=== PATIENT | male | born 2000 | race Caucasian/White ===

== ENCOUNTER 2021-11-09 15:53 | Inpatient (IN) ==
--- NOTE | 2021-11-09 16:34 | ED Triage Note ---
Date of Service November 09, 2021 History of Present Illness This patient was briefly evaluated while in triage. An abbreviated physical exam was performed. This patient is a 21-year-old male with past medical history of anxiety who presents to the ED for evaluation of vomiting. The patient states he has been constipated x 4 days and has had persistent lower abdominal pain since then. He has been attempting to take stool softeners without relief. Today, the patient states that he felt dehydrated and weak. He did attempt to drink water but stated that he felt intermittently lightheaded/dizzy throughout the day and felt like he was going to pass out several times. During an episode this afternoon, he states that he vomited 4 times. He did note red and dark/black colors in his vomit. No recent fevers/chills, chest pain, respiratory difficulties or other acute symptoms. PHYSICAL EXAM: VITALS: Vitals are noted on the nurse's note and reviewed by myself. Vital signs stable. General: Resting in chair, no acute distress HEENT: Normocephalic, PERRL, EOMI, mucous membranes moist, oropharynx clear Resp: Good inspiratory effort on room air, lung sounds clear bilaterally CV: Regular rate and rhythm, normal S1-S2 Abd: Mildly distended but soft, tender to palpation over the lower abdominal quadrants/suprapubic region. No rebound, guarding or rigidity MSK: Moving all extremities without apparent pain or difficulty Integumentary: Warm, dry, no appreciable rash Neuro: Awake, alert and oriented x 3, interacting and answering questions appropriately Physical Exam Initial orders for labs and / or imaging were placed and patient was placed in the waiting area until a bed is available. Please see further documentation for the full ED course.
[2021-11-09] MEDS ORDERED: SODIUM CHLORIDE 0.9% 1000ML 1,000 ML IV SCH (16:35)
[2021-11-09 17:08] LABS: Basophils # (auto) 0.08 K/uL (0-0.2); Basophils % (auto) 0.5 %; Eosinophils # (auto) 0.18 K/uL (0-0.50); Eosinophils % (auto) 1.1 %; Hematocrit (blood only) 40.7 % (40.1-51.0); Hemoglobin 14.4 g/dl (14.0-18.0); Immature Granulocytes # (auto) 0.07 K/uL (0.00-0.02); Immature Granulocytes % (auto) 0.4 %; Lymphocytes # (auto) 1.41 K/uL (1.2-3.4); Lymphocytes % (auto) 8.3 %; Mean Corpuscular Hemoglobin 29.2 pg (25.0-34.0); Mean Corpuscular Hgb Conc 35.4 g/dL (32.0-36.0); Mean Corpuscular Volume 82.6 fL (80.0-100.0); Mean Platelet Volume 10.4 fL (9.4-12.4); Monocytes # (auto) 0.86 K/uL (0.24-0.82); Monocytes % (auto) 5.1 %; Neutrophils # (auto) 14.39 K/uL (1.4-6.5); Neutrophils % (auto) 84.6 %; Platelet Count 339 K/uL (130-400); RDW Coefficient of Variation 12.9 % (11.5-14.5); RDW Standard Deviation 38.2 fL (36.4-46.3); Red Blood Count 4.93 M/uL (4.63-6.08); White Blood Count 16.99 K/ul (4.8-10.8)
[2021-11-09 17:35] LABS: INR 1.1 (0.9-1.1); Partial Thromboplastin Ratio 0.9; Partial Thromboplastin Time 23.9 Seconds (21.0-31.0)
[2021-11-09 17:42] LABS: BUN Creatinine Ratio 37.7 (10-20)
[2021-11-09 17:43] LABS: Albumin Level 4.5 gm/dl (3.4-5.0); Bilirubin,Total 0.8 mg/dl (0.2-1.0); Calcium 9.1 mg/dl (8.5-10.1); Creatinine Clr Calc Pharmacy 123.9 ml/min; Est GFR (African American) 115.7 ml/min; Est GFR (Non-African American) 99.8 ml/min; Globulin 2.2 gm/dl (2.5-4.0); Potassium 4.3 mmol/L (3.5-5.1); Total Protein 6.7 gm/dl (6.0-8.3); Troponin I High Sensitivity 5.5 pg/ml (0-20)
[2021-11-09] MEDS ORDERED: OPTIRAY 300 500mL IV ONE (18:10)
--- NOTE | 2021-11-09 18:29 | CT Scan Report ---
CT SCAN OF THE ABDOMEN AND PELVIS WITH IV CONTRAST CLINICAL HISTORY: Lower abdominal pain. Vomiting. COMPARISON STUDY: No priors. TECHNIQUE: Following the IV administration of 95 cc of Optiray 300, CT scan of the abdomen and pelvi s is performed from the lung bases to the proximal femora. Images are reviewed in the axial, sagittal , and coronal planes. IV contrast was administered without complication. A dose lowering technique wa s utilized adhering to the principles of ALARA. The examination is modestly degraded by motion artifa ct. CT DOSE: 418.47 mGy.cm FINDINGS: Lung bases: The heart is normal in size and without pericardial effusion. The lung bases are clear. Liver: The contrast-enhanced liver is normal in size, contour, and attenuation. There is no intrahepa tic biliary ductal dilatation. The hepatic veins and portal veins are patent. Gallbladder: Unremarkable. Spleen: Normal in size and attenuation. Pancreas: Unremarkable. Adrenal glands: Unremarkable. Kidneys: The contrast enhanced kidneys are normal in size and without hydronephrosis. The kidneys enh ance symmetrically. Abdominal vasculature: The abdominal aorta is normal in course and caliber. Bowel: There is no bowel obstruction. There is mild nonspecific wall thickening and mucosal hyperemia involving the proximal duodenum with mild surrounding inflammation. This is best seen on axial image #123. Liquid stool is noted in the colon. There is no colonic wall thickening or surrounding inflamm ation. The appendix is well-visualized and normal. Peritoneum: There is no intraperitoneal free air or abdominal ascites. There is a small fat-containin g umbilical hernia. Lymphadenopathy: Prominent upper abdominal lymph nodes are likely reactive. Pelvic viscera: The bladder is decompressed and not well evaluated. The prostate and seminal vesicles are normal as imaged. Skeletal structures: No lytic or blastic lesions are seen. IMPRESSION: 1. There is inflammatory change involving the proximal duodenum as detailed above. Differential consi derations include duodenitis or possibly ulcer disease. Clinical correlation will be essential. This can be further assessed with endoscopy if clinically warranted. 2. No intraperitoneal free air is identified. 3. Liquid stool seen throughout the colon. Correlate clinically for evidence of a diarrheal illness. 4. No bowel obstruction. 5. Additional findings as above. ACT 112: Negative or not required by law. Electronically signed by: Ho Kaye M.D. 11/09/2021 6:27 PM
--- NOTE | 2021-11-09 18:33 | Emergency Department Note ---
Impression & Plan Upper GI bleed, Peptic ulcer disease, Tachycardia, Nausea & vomiting ED Provider Note Provider: Billy Samuel MD DATE OF SERVICE: 11/09/2021 CHIEF COMPLAINT: Abdominal pain, lightheaded, dehydrated HISTORY OF PRESENT ILLNESS: Patient is a 21-year-old gentleman presenting today stating he is having some generalized fatigue and lower abdominal pain feeling a bit lightheaded and dehydrated. States has had some nausea and vomiting as well. No trauma reported. Denies COVID or sick exposure. States has been constipated for couple days and taking some stool softeners. States this larry cantrell woke up and felt little bit lightheadedness and her stomach was a little bit unsettled. Went to class and felt lightheaded sitting down and was taking the bus back to his apartment when he outside in the heat felt lightheaded and sat down. He then he states he vomited 4 times with some black quality and some blood in it. Patient denies any bloody diarrhea or stools. Came here for further evaluation. Denies syncope. Denies history of abdominal surgery or significant alcohol or NSAID usage. Patient states he has had maybe a little bit of heartburn here there. Patient states since being here he did urinate and have a small bowel movement with no blood in it. REVIEW OF SYSTEMS: A total of 10 review of systems was obtained and negative except as stated above in the HPI. PAST MEDICAL HISTORY: As noted above MEDICATIONS: Anxiety medications reported by the patient, no NSAIDs or antic oagulants reported. SOCIAL HISTORY: [employer] student originally from [facility], denies rec ent alcohol use PHYSICAL EXAM: GENERAL: alert and oriented in no acute distress on stretcher Head: normocephalic and atraumatic EYES: No injection, discharge or icterus. NECK: Trachea midline. ENT: Mucous membranes pink and moist. LUNGS: Airway patent. No retractions. Breath sounds clear with good air entry bilaterally. HEART: Regular tachycardic rate and rhythm. No chest wall tenderness ABDOMEN: Soft without guarding with some slight tenderness just below the umbilicus. No peritonitis. SKIN: Acyanotic, warm, dry, without rashes EXTREMITIES: Without swelling, tenderness or deformity NEUROLOGICAL: No focal deficits. No aphasia. No facial droop or slurred speech. Ambulatory. EK bpm sinus tachycardia. No PVC or PAC. No acute ST segment elevation or depression with a QTC of 425. CONTINUOUS CARDIAC MONITORING: was ordered and showed a heart rate of 100s-120s bpm in sinus tachycardia Patient's laboratory studies and imaging reviewed. Differential includes Appendicitis, testicular torsion, infections, diverticulitis, UTI, obstruction, mesenteric ischemia, aortic pathology, inflammatory bowel disease, renal colic, PUD, pancreatitis, biliary pathology, hernia, volvulus, constipation, as well as other pathologies. IMPRESSION/MEDICAL DECISION MAKING: Blood work obtained with leukocytosis of almost 17 today. BUN mildly elevated but creatinine within normal limits. Given some IV fluids here. No evidence of acute hepatitis or pancreatitis based on labs. Tachycardia improved with some hydration here. No troponin elevation I doubt this represents SVT or cardiac arrhythmia. CT abdomen pelvis obtained and radiology report reviewed. There is a question of possibly some duodenitis versus peptic ulcer disease. No perforation noted by the radiologist. Patient's abdomen is fairly benign. Given some Pepcid and Protonix here as well as IV fluid. Doubt this is infectious based. Again abdominal exam and imaging not consistent with a perforation. Denies recent NSAID or alcohol usage. Discussed with GI given the CT findings and the amount of blood noted on the picture the patient had a cell phone of his vomiting earlier. Will bring in plan for endoscopy in the morning. PPI drip ordered. Patient updated. Stable at this time. DIAGNOSIS: Hematemesis, peptic ulcer disease, tachycardia, lightheaded, vomiting DISPOSITION: Hospitalist will evaluate Patient was agreeable with this plan. Past Med/Surg History Medical History No significant past medical history Surgical History No significant past surgical history Social History Smoking Status: Never smoker Second Hand Exposure: No; Do You Dip or Chew Tobacco: No; Tobacco Cessation Education Requested by Patient: No Hx Alcohol Use: Yes Hx Substance Use: No Preferred Language: Ukrainian Communication Ability: Effective Wire Fence Builder Required: No Beliefs That Will Affect Care: None Current Living Situation: Other Current Living Situation Comment: roommates Other Information That Helps Us Care for You: No Feels Safe at Home: Yes Safety Concerns: Feels Safe At This Time Assistive Devices: Glasses Allergies Allergies Allergy/AdvReac Type Severity Reaction Status Date / Time azithromycin [From Zithromax] AdvReac Verified 11/09/21 18:40 Home Meds Home Medications Medication Instructions Recorded Confirmed alprazolam 0.5 mg tablet 0.5 mg PO BID PRN Anxiety 11/09/21 11/09/21 Results & Data (ED) Vital Signs Vital Signs - 24 hr 11/09/21 16:27 11/09/21 18:20 11/09/21 22:40 Temperature 36.7 C 37.5 C Temperature Source Temporal Artery Scan Oral Pulse Rate 80 Pulse Rate [Right Finger] 109 H 104 H Pulse Rhythm [Right Finger] Regular Pulse Strength [Right Finger] Normal Respiratory Rate 18 18 18 Respiratory Effort / Characteristics Non-Labored Spontaneous Non-Labored Respiratory Depth Normal Normal Respiratory Pattern Regular Blood Pressure 131/69 Blood Pressure [Right Arm] 123/77 113/71 Blood Pressure Mean 89 Blood Pressure Mean [Right Arm] 92 85 Blood Pressure Position [Right Arm] Lying Lying Pulse Oximetry 96 98 100 Oxygen Delivery Method Room Air Room Air Room Air Sepsis Recent Fever Within 48 Hours No Sepsis New/Unexplained Change in Mental Status No Sepsis Action Taken by Nursing No Action Required 11/09/21 22:40 Temperature Temperature Source Pulse Rate Pulse Rate [Right Finger] Pulse Rhythm [Right Finger] Pulse Strength [Right Finger] Respiratory Rate Respiratory Effort / Characteristics Non-Labored Respiratory Depth Normal Respiratory Pattern Regular Blood Pressure Blood Pressure [Right Arm] Blood Pressure Mean Blood Pressure Mean [Right Arm] Blood Pressure Position [Right Arm] Pulse Oximetry Oxygen Delivery Method Room Air Sepsis Recent Fever Within 48 Hours Sepsis New/Unexplained Change in Mental Status Sepsis Action Taken by Nursing Laboratory Data Result diagrams: 11/09/21 23:13 11/09/21 16:50 Lab Results 11/09/21 11/09/21 11/09/21 Range/Units 16:50 16:50 16:50 WBC 16.99 H (4.8-10.8) K/ul RBC 4.93 (4.63-6.08) M/uL Hgb 14.4 (14.0-18.0) g/dl Hct 40.7 (40.1-51.0) % MCV 82.6 (80.0-100.0) fL MCH 29.2 (25.0-34.0) pg MCHC 35.4 (32.0-36.0) g/dL RDW Std Deviation 38.2 (36.4-46.3) fL RDW Coeff of Mary 12.9 (11.5-14.5) % Plt Count 339 (130-400) K/uL MPV 10.4 (9.4-12.4) fL Immature Gran % (Auto) 0.4 % Neut % (Auto) 84.6 % Lymph % (Auto) 8.3 % Rosebud % (Auto) 5.1 % Eos % (Auto) 1.1 % Baso % (Auto) 0.5 % Neut # (Auto) 14.39 H (1.4-6.5) K/uL Lymph # (Auto) 1.41 (1.2-3.4) K/uL Rosebud # (Auto) 0.86 H (0.24-0.82) K/uL Eos # (Auto) 0.18 (0-0.50) K/uL Baso # (Auto) 0.08 (0-0.2) K/uL Immature Gran # (Auto) 0.07 H (0.00-0.02) K/uL PT 12.0 (9.0-12.0) Seconds INR 1.1 (0.9-1.1) APTT 23.9 (21.0-31.0) Seconds PTT Ratio 0.9 Sodium 137 (136-145) mmol/L Potassium 4.3 (3.5-5.1) mmol/L Chloride 103 (98-107) mmol/L Carbon Dioxide 26 (21-32) mmol/L Anion Gap 8 (3-11) BUN 40 H (6-23) mg/dl Creatinine 1.06 (0.6-1.4) mg/dl Est Cr Clr Drug Dosing 123.9 ml/min Est GFR ( Amer) 115.7 ml/min Est GFR (Non-Af Amer) 99.8 ml/min BUN/Creatinine Ratio 37.7 H (10-20) Glucose 105 H (70-99(Fasting)) mg/dl Lactate (0.4-2.0) mmol/L Calcium 9.1 (8.5-10.1) mg/dl Total Bilirubin 0.8 (0.2-1.0) mg/dl AST 8 L (13-39) U/L ALT 10 (7-52) U/L Alkaline Phosphatase 66 (34-104) U/L Troponin I High Sens 5.5 (0-20) pg/ml Total Protein 6.7 (6.0-8.3) gm/dl Albumin 4.5 (3.4-5.0) gm/dl Globulin 2.2 L (2.5-4.0) gm/dl Albumin/Globulin Ratio 2.0 (0.9-2) Lipase 8 L (11-82) U/L SARS-CoV-2, RNA, NAAT (NEGATIVE) Blood Type Antibody Screen 11/09/21 11/09/21 11/09/21 Range/Units 18:22 19:45 19:45 WBC (4.8-10.8) K/ul RBC (4.63-6.08) M/uL Hgb (14.0-18.0) g/dl Hct (40.1-51.0) % MCV (80.0-100.0) fL MCH (25.0-34.0) pg MCHC (32.0-36.0) g/dL RDW Std Deviation (36.4-46.3) fL RDW Coeff of Mary (11.5-14.5) % Plt Count (130-400) K/uL MPV (9.4-12.4) fL Immature Gran % (Auto) % Neut % (Auto) % Lymph % (Auto) % Rosebud % (Auto) % Eos % (Auto) % Baso % (Auto) % Neut # (Auto) (1.4-6.5) K/uL Lymph # (Auto) (1.2-3.4) K/uL Rosebud # (Auto) (0.24-0.82) K/uL Eos # (Auto) (0-0.50) K/uL Baso # (Auto) (0-0.2) K/uL Immature Gran # (Auto) (0.00-0.02) K/uL PT (9.0-12.0) Seconds INR (0.9-1.1) APTT (21.0-31.0) Seconds PTT Ratio Sodium (136-145) mmol/L Potassium (3.5-5.1) mmol/L Chloride (98-107) mmol/L Carbon Dioxide (21-32) mmol/L Anion Gap (3-11) BUN (6-23) mg/dl Creatinine (0.6-1.4) mg/dl Est Cr Clr Drug Dosing ml/min Est GFR ( Amer) ml/min Est GFR (Non-Af Amer) ml/min BUN/Creatinine Ratio (10-20) Glucose (70-99(Fasting)) mg/dl Lactate 0.7 (0.4-2.0) mmol/L Calcium (8.5-10.1) mg/dl Total Bilirubin (0.2-1.0) mg/dl AST (13-39) U/L ALT (7-52) U/L Alkaline Phosphatase (34-104) U/L Troponin I High Sens (0-20) pg/ml Total Protein (6.0-8.3) gm/dl Albumin (3.4-5.0) gm/dl Globulin (2.5-4.0) gm/dl Albumin/Globulin Ratio (0.9-2) Lipase (11-82) U/L SARS-CoV-2, RNA, NAAT NEGATIVE (NEGATIVE) Blood Type O Positive Antibody Screen NEGATIVE Administered Medications Pantoprazole Sodium 40 mg/ (Dextrose) 100 mls @ 20 mls/hr IV Q5H LANG Stop: 12/09/21 19:14 Last Admin: 11/09/21 20:10 Dose: 8 mg/hr, 20 mls/hr Documented By: VAP Discontinued Medications Sodium Chloride (Nss 1000ml) 1,000 mls @ 999 mls/hr IV .Q1H1M LANG Stop: 11/09/21 17:35 Last Infusion: 11/09/21 18:19 Dose: 0 mls/hr Documented By: Admin: 11/09/21 16:55 Dose: 999 mls/hr Documented By: DONALD Famotidine (Pepcid 20mg Iv Push) 20 mg in 5 mls @ 2.5 mls/min IV NOW STA Stop: 11/09/21 18:41 Last Admin: 11/09/21 18:44 Dose: 2.5 mls/min Documented By: JOSEY Pantoprazole Sodium 80 mg/ (Dextrose) 100 mls @ 400 mls/hr IV ONE STA Stop: 11/09/21 18:54 Last Admin: 11/09/21 19:06 Dose: 400 mls/hr Documented By: JOSEY Sodium Chloride (Nss 1000ml) 1,000 mls @ 999 mls/hr IV .Q1H1M ONE Stop: 11/09/21 19:40 Last Admin: 11/09/21 18:44 Dose: 999 mls/hr Documented By: JOSEY Ioversol (Optiray 300 500ml) 95 ml IV ONCE ONE Stop: 11/09/21 18:11 Last Admin: 11/09/21 18:10 Dose: 95 ml Documented By: EDK Imaging Data Radiologist's Impression: Abdomen/Pelvis CT 11/09/21 16:34 CT SCAN OF THE ABDOMEN AND PELVIS WITH IV CONTRAST CLINICAL HISTORY: Lower abdominal pain. Vomiting. COMPARISON STUDY: No priors. TECHNIQUE: Following the IV administration of 95 cc of Optiray 300, CT scan of the abdomen and pelvis is performed from the lung bases to the proximal femora. Images are reviewed in the axial, sagittal, and coronal planes. IV contrast was administered without complication. A dose lowering technique was utilized adhering to the principles of ALARA. The examination is modestly degraded by motion artifact. CT DOSE: 418.47 mGy.cm FINDINGS: Lung bases: The heart is normal in size and without pericardial effusion. The lung bases are clear. Liver: The contrast-enhanced liver is normal in size, contour, and attenuation. There is no intrahepatic biliary ductal dilatation. The hepatic veins and portal veins are patent. Gallbladder: Unremarkable. Spleen: Normal in size and attenuation. Pancreas: Unremarkable. Adrenal glands: Unremarkable. Kidneys: The contrast enhanced kidneys are normal in size and without hydronephrosis. The kidneys enhance symmetrically. Abdominal vasculature: The abdominal aorta is normal in course and caliber. Bowel: There is no bowel obstruction. There is mild nonspecific wall thickening and mucosal hyperemia involving the proximal duodenum with mild surrounding inflammation. This is best seen on axial image #123. Liquid stool is noted in the colon. There is no colonic wall thickening or surrounding inflammation. The appendix is well-visualized and normal. Peritoneum: There is no intraperitoneal free air or abdominal ascites. There is a small fat-containing umbilical hernia. Lymphadenopathy: Prominent upper abdominal lymph nodes are likely reactive. Pelvic viscera: The bladder is decompressed and not well evaluated. The prostate and seminal vesicles are normal as imaged. Skeletal structures: No lytic or blastic lesions are seen. IMPRESSION: 1. There is inflammatory change involving the proximal duodenum as detailed above. Differential considerations include duodenitis or possibly ulcer disease. Clinical correlation will be essential. This can be further assessed with endoscopy if clinically warranted. 2. No intraperitoneal free air is identified. 3. Liquid stool seen throughout the colon. Correlate clinically for evidence of a diarrheal illness. 4. No bowel obstruction. 5. Additional findings as above. ACT 112: Negative or not required by law. Electronically signed by: Ho Kaye M.D. 11/09/2021 6:27 PM Discharge Plan Visit Data Chief Complaint: Vomiting Stated Complaint: DEHYDRATED, FEELING OF PASSING OUT, VOMITING ED Provider: Billy Samuel Discharge Problem: Upper GI bleed, Peptic ulcer disease, Tachycardia, Nausea & vomiting Patient Disposition: Admitted As Inpatient Discharge Instructions Interventions: ED Discharge Assessment Last Done: 11/09/21 22:26
[2021-11-09] MEDS ORDERED: SODIUM CHLORIDE 0.9% 1000ML 1,000 ML IV ONE (18:40)
[2021-11-09] MEDS ORDERED: PANTOprazole 80 MG in DEXTROSE 5% 100 ML IV STA (18:40)
[2021-11-09] MEDS ORDERED: FAMOTIDINE 20MG IV PUSH 20 MG/5 ML SYR IV STA (18:40)
--- NOTE | 2021-11-09 19:22 | History & Physical Report ---
Date of Service November 09, 2021 Assessment & Plan (1) Upper GI bleed: Plan: -Admit to PCU/tele -Patient is currently afebrile, hemodynamically stable, and stable on RA, but he has been tachycardic since arriving to the ED -Started on Protonix in the ED, will continue with IV Protonix for now -Keep NPO -GI consult placed, they will likely perform an EGD in the am -Ordering type and screen now and obtained blood consent in case he needs a transfusion -Monitor H&H q6h overnight -Zofran, prn for nausea/vomiting -Will continue on lactated ringer's overnight while NPO Plan The patient was discussed with Dr. Guerrero at the time of the admission History of Present Illness Chief Complaint: Abdominal pain and vomiting Primary Care Provider: NO PCP 21 year old male with no significant PMH who presented to the [facility] with a chief complaint of abdominal pain and vomiting with hematemesis. In the ED the patient was found to have a leukocytosis with left shift of 14.39, Hgb of 14.4, BUN of 40, CT of the abdomen and pelvis with IV contrast revealed " inflammatory change involving the proximal duodenum as detailed above. Differential considerations include duodenitis or possibly ulcer disease". The patient was started on Protonix, given 1L NSS and famotidine. Gastroenterology was contacted and recommended admission, they will perform an EGD tomorrow. At the time of the exam the patient was resting comfortably in bed in no acute distress. He states that he was in his normal state of health until he woke up this am and felt dehydrated and tired. He tried to drink some water and then went to class. While in class he states that he was diaphoretic, nauseous, and lightheaded. He walked back to the bus stop and was standing and waiting for the bus in the sun. He states that he felt more lightheaded/dizzy and felt as though he was going to pass out so he went and sat in the shade. He then felt nauseous again and had 4 episodes of vomiting. He showed me a picture of the vomit and it consisted of blood and digested blood. He denies frequent NSAID use, history of GI ulcers, and significant PMH. He states that he has been constipated the past few days and had taken a stool softener. He is having some mild lower abdominal pain which he describes as dull and non-radiating. Since arriving to the hospital he has not vomited but has had multiple small, black bowel movements. Allergies Allergy/AdvReac Type Severity Reaction Status Date / Time azithromycin [From Zithromax] AdvReac Verified 11/09/21 18:40 Home Medications Medication Instructions Recorded Confirmed Type alprazolam 0.5 mg tablet 0.5 mg PO BID PRN Anxiety 11/09/21 11/09/21 History Past Med/Surg History Medical History No significant past medical history Surgical History No significant past surgical history Social History Smoking Status: Never smoker Preferred Language: Lithuanian Feels Safe at Home: Yes Review of Systems Review of Systems: Denies current fever, chills, headache, changes in vision, hearing, taste, and smell, chest pain, SOB, cough, nausea, vomiting, diarrhea, dysuria, hematuria, and recent falls. Physical Exam Physical Exam: Physical Exam: General: In no acute distress, stated age, well-nourished, good hygiene HEENT: Normocephalic, atraumatic, no scleral icterus, pupils around round, symmetrical, and reactive to light, moist mucus membranes, trachea midline, no thyromegaly Chest/Pulm: No respiratory distress, symmetrical chest expansion, clear breath sounds throughout Cardiac: Tachycardic rate, regular rhythm, no murmurs noted Abdomen: Negative for ascites and bruising, normoactive bowel sounds, soft, mildly tender to palpation in the lower abdomen Musculoskeletal: Symmetrical and without signs of acute trauma, upper and lower extremities with full ROM, no atrophy, spasticity, or flaccidity Neuro: Alert and oriented to person, place, month, year, and president, no focal defects, CN II-XII tested and intact, finger to nose test negative, no tremors noted Psych: No acute distress, calm and cooperative during the exam Results & Data Results & Data ([facility]) Vital Signs (Past 12 Hours) Vital Signs Temp Pulse Pulse Resp BP BP Pulse Ox 11/09/21 18:20 109 H 18 123/77 98 11/09/21 16:27 36.7 C 80 18 131/69 96 O2 Del Method 11/09/21 18:20 Room Air 11/09/21 16:27 Room Air Laboratory Results Abnormal lab results 11/09/21 11/09/21 Range/Units 16:50 16:50 WBC 16.99 H (4.8-10.8) K/ul Neut # (Auto) 14.39 H (1.4-6.5) K/uL [place] # (Auto) 0.86 H (0.24-0.82) K/uL Immature Gran # (Auto) 0.07 H (0.00-0.02) K/uL BUN 40 H (6-23) mg/dl BUN/Creatinine Ratio 37.7 H (10-20) Glucose 105 H (70-99(Fasting)) mg/dl AST 8 L (13-39) U/L Globulin 2.2 L (2.5-4.0) gm/dl Lipase 8 L (11-82) U/L Diagnostic Findings Abdomen/Pelvis CT 11/09/21 16:34 CT SCAN OF THE ABDOMEN AND PELVIS WITH IV CONTRAST CLINICAL HISTORY: Lower abdominal pain. Vomiting. COMPARISON STUDY: No priors. TECHNIQUE: Following the IV administration of 95 cc of Optiray 300, CT scan of the abdomen and pelvis is performed from the lung bases to the proximal femora. Images are reviewed in the axial, sagittal, and coronal planes. IV contrast was administered without complication. A dose lowering technique was utilized adhering to the principles of ALARA. The examination is modestly degraded by motion artifact. CT DOSE: 418.47 mGy.cm FINDINGS: Lung bases: The heart is normal in size and without pericardial effusion. The lung bases are clear. Liver: The contrast-enhanced liver is normal in size, contour, and attenuation. There is no intrahepatic biliary ductal dilatation. The hepatic veins and portal veins are patent. Gallbladder: Unremarkable. Spleen: Normal in size and attenuation. Pancreas: Unremarkable. Adrenal glands: Unremarkable. Kidneys: The contrast enhanced kidneys are normal in size and without hydronephrosis. The kidneys enhance symmetrically. Abdominal vasculature: The abdominal aorta is normal in course and caliber. Bowel: There is no bowel obstruction. There is mild nonspecific wall thickening and mucosal hyperemia involving the proximal duodenum with mild surrounding inflammation. This is best seen on axial image #123. Liquid stool is noted in the colon. There is no colonic wall thickening or surrounding inflammation. The appendix is well-visualized and normal. Peritoneum: There is no intraperitoneal free air or abdominal ascites. There is a small fat-containing umbilical hernia. Lymphadenopathy: Prominent upper abdominal lymph nodes are likely reactive. Pelvic viscera: The bladder is decompressed and not well evaluated. The prostate and seminal vesicles are normal as imaged. Skeletal structures: No lytic or blastic lesions are seen. IMPRESSION: 1. There is inflammatory change involving the proximal duodenum as detailed above. Differential considerations include duodenitis or possibly ulcer disease. Clinical correlation will be essential. This can be further assessed with endoscopy if clinically warranted. 2. No intraperitoneal free air is identified. 3. Liquid stool seen throughout the colon. Correlate clinically for evidence of a diarrheal illness. 4. No bowel obstruction. 5. Additional findings as above. ACT 112: Negative or not required by law. Electronically signed by: Ho Kaye M.D. 11/09/2021 6:27 PM Code Status & VTE Plan Code Status Full code VTE Prophylaxis Plan VTE Prophylaxis will be ordered: Yes Supervising Physician Co-Signing Physician Notes Patient seen and examined, chart reviewed, case discussed with VITOR Hall and I agree with the assessment and plan as above. In brief, patient is a 21yo male with no significant past medical or surgical history presenting with nausea/vomiting with hematemesis as well as melenic stools. Patient does use NSAIDS infrequently for headache. Drinks occasionally but no recent heavy drinking. Has occasional GERD. No prior history of GIB. On exam he is resting comfortably, mildly anxious in appearance, NAD Skin - warm, dry, intact, no diaphoresis HEENT - MMM, Neck supple Heart - +S1/S2, regular, no m/r/g Lungs - CTA Abd - +BS, soft, NT, mild lower abdominal discomfort with deep palpation, no rebound/guarding/peritonitis Ext - warm, well perfused, no clubbing/cyanosis or edema PIV x [address] Labs and images reviewed. Significant for WBC=16.99, Hgb=14.4, Hct=40.7, platelets and coagulation panel normal. BUN elevated at 40 CT of the abdomen and pelvis with inflammatory changes of the proximal duodenum Assessment/Plan 21yo male with no significant past medical or surgical history presents with UGIB - nausea/vomiting/hematemesis, elevated BUN of 40. He is slightly tachycardic, BP stable. H/H adequate at this time. PIV x [address]. He has been started on Protonix. GI is aware Most likely source duodenitis vs ulcer. Possible NSAID use contributing -Admit to PCU -Maintain PIV x 2 large bore -Trend CBC q 6 hours, transfuse for ongoing bleeding, symptomatic anemia or Hgb < 7 -NPO -GI consultation appreciated. Most likely for EGD in AM -Alprazolam 0.5mg po BID PRN anxiety - Hold for now -Remainder as above PG Care Time/CCT Total # of Minutes Spent Total Time Spent with Patient: Total time spent is greater than 50% in coordination of care (as documented) at patient's floor/unit and/or counseling patient: [place] [address] Initial Inpt Care Lvl 2 Patient Type New Medical Decision Making Straight Forward Diagnoses Upper GI bleed K92.2
[2021-11-09] MEDS: PANTOprazole 40 MG in DEXTROSE 5% 100 ML IV SCH (20:10)
[2021-11-09] MEDS ORDERED: ONDANSETRON INJ 2 MG/ML 2 ML VIAL IV PRN (22:46)
[2021-11-09] MEDS ORDERED: ACETAMINOPHEN 1000 MG/100 ML IV IV PRN (22:46)
[2021-11-09 23:30] LABS: Hemoglobin 11.6 g/dl (14.0-18.0)
[2021-11-10] MEDS: PANTOprazole 40 MG in DEXTROSE 5% 100 ML IV SCH ×5 (01:27→22:41)
[2021-11-10] MEDS: LACTATED RINGER'S 1,000 ML IV SCH ×3 (02:12→22:41)
[2021-11-10 04:38] LABS: Hemoglobin 11.3 g/dl (14.0-18.0)
--- NOTE | 2021-11-10 08:22 | Electrocardiogram Report ---
Test Reason : Blood Pressure : / mmHG Vent. Rate : 143 BPM Atrial Rate : 143 BPM P-R Int : 116 ms QRS Dur : 066 ms QT Int : 276 ms P-R-T Axes : 058 048 055 degrees QTc Int : 425 ms Poor data quality, interpretation may be adversely affected Sinus tachycardia Otherwise normal ECG No previous ECGs available Confirmed by Ravi Norris ([id number]) on 11/10/2021 8:22:40 AM Referred By: REFERRED SELF Confirmed By:Ravi Norris
--- NOTE | 2021-11-10 08:37 | Anesthesiology Consultation ---
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 History Surgery Operation Date: 11/10/21 16:00 Proposed Procedures p Esophagogastroduodenoscopy - Karla Benitez DO Height/Weight Height: 5 ft 10 in Weight: 88.8 kg Allergies Allergy/AdvReac Type Severity Reaction Status Date / Time azithromycin [From Zithromax] AdvReac Verified 11/09/21 18:40 Medications Home Medications Medication Instructions Recorded Confirmed Last Taken alprazolam 0.5 mg tablet 0.5 mg PO BID PRN Anxiety 11/09/21 11/09/21 Unknown Active Medications Generic Name Dose Route Start Last Admin Trade Name Freq PRN Reason Stop Dose Admin Pantoprazole Sodium 40 mg/ 100 mls @ 20 mls/hr 11/09/21 19:15 11/10/21 06:28 Dextrose IV 12/09/21 19:14 8 mg/hr Q5H LANG 20 mls/hr Administration 8 MG/HR Lactated Ringer's 1,000 mls @ 100 mls/hr 11/10/21 02:00 11/10/21 02:12 Lr IV 12/10/21 01:59 100 mls/hr .Q10H LANG Administration Past Medical History Medical History No significant past medical history Past Surgical History Surgical History No significant past surgical history Social History Smoking Status: Never smoker Do You Dip or Chew Tobacco: No Hx Alcohol Use: Yes alcohol intake frequency: a few times a week Hx Substance Use: No Physical Exam Vital Signs Last Vital Signs Temp 98.1 F 11/10/21 08:00 Pulse 104 H 11/10/21 08:00 Resp 16 11/10/21 08:00 BP 124/59 L 11/10/21 08:00 Pulse Ox 94 11/10/21 08:00 O2 Del Method 11/10/21 02:57 Testing Laboratory Results 11/10/21 04:12 11/09/21 16:50 PT 12.0 Seconds (9.0-12.0) 11/09/21 16:50 INR 1.1 (0.9-1.1) 11/09/21 16:50 APTT 23.9 Seconds (21.0-31.0) 11/09/21 16:50 Blood Type O Positive 11/09/21 19:45 Antibody Screen NEGATIVE 11/09/21 19:45
--- NOTE | 2021-11-10 08:46 | Gastrointestinal Consultation ---
Date of Consultation November 10, 2021 Assessment & Plan (1) GI bleed: Pt is a 21 yo male who presented w hematemesis, melena, noted to be mildly anemic and on CT scan had sign of inflammatory changes in duodenum. DDx: duodenitis, PUD, Vicky Luna tear. - Keep NPO - PPI gtt - EGD eval by Dr. Benitez today - Avoid NSAIDs, ETOH advised - Monitor blood ct - Further recs after EGD completed Supervising Physician Co-Signing Physician Notes Patient seen and examined, chart reviewed, case discussed with KERA Madison and I agree with the assessment and plan as above. In brief, patient is a 21yo male with no significant past medical or surgical history presenting with a one day history of nausea/vomiting, abdominal pain, coffee ground emesis and melena. Reports 4 episodes of coffee ground emesis yesterday mixed with some bright red blood. No hematochezia. Reports that he did have some nausea and lightheadedness while waiting at the bus stop in the sun yesterday prior to vomiting coffee ground material. He denies any NSAID use and states that he only uses tylenol PRN for headaches. Reports minimal social alcohol use and states he has not drank recently. Denies tobacco use. Reports he has been experiencing constipation the past 3 days requiring the use of stool softeners but when he finally had some bowel movements yesterday they were black and tarry. No known history of GI bleeding or family history of any GI malignancy. Does have some abdominal pain below the umbilicus as well which is knew over the past few days. Occasional heartburn. On exam he is resting comfortably, NAD Skin - warm, dry, intact, not jaundiced HEENT - sclera anicteric Heart - +S1/S2, regular rate and rhythm, no murmurs Lungs - CTA, normal respiratory effort Abd - +BS, soft, NT to deep palpation, no rebound/guarding Ext - warm, well perfused, no edema Labs and images reviewed. Significant for hemoglobin of 11.3. platelets and coagulation panel normal. BUN elevated at 40 CT of the abdomen and pelvis with inflammatory changes of the proximal duodenum Assessment/Plan 21yo male with no significant past medical history presenting with concern of UGI bleed given coffee ground emesis and melena. CT scan with inflammatory changes involving the proximal duodenum. Differential includes PUD, duodenitis, and vicky luna tear. Will plan for EGD this AM. Recommend IV PPI 40 mg BID. NPO. Further recommendations after EGD completed. Advised patient to continue to avoid NSAIDs (denies any use) and limit alcohol intake. Karla Benitez DO Gastroenterology and Hepatology History of Present Illness Reason for Consultation: Hematemesis Requesting Physician: Dr. Monica Dumont Attending Physician: Dr. 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 Woke up yesterday morning feeling weak and light headed, light headed and feeling he may 'pass out'. He went to class and on the way back to apartment, he had nausea and vomiting x 4. Noticed dark red and black colored vomit with each emesis episode. He endorsed constipation days ago but then yesterday started having loose black stools. No n/v since prior to admission. BM x 5 since coming to hospital - all black stools, last BM 2AM. He has associated abd pain under umbilicus. No sick contact. He takes Tylenol for HAs, "something for anxiety, OCD every day but cannot remember name". Denies abd surgeries. + ETOH intake: about 5 beers a week, last ETOH intake was 10 days ago Denies tobacco/vape, no marijuana Labs w mild anemia H/H , BUN 40, normal Cr. + leukocystosis. CT abd/pelvis w contrast showed: 1. There is inflammatory change involving the proximal duodenum as detailed above. Differential considerations include duodenitis or possibly ulcer disease. Clinical correlation will be essential. This can be further assessed with endoscopy if clinically warranted. 2. No intraperitoneal free air is identified. 3. Liquid stool seen throughout the colon. Correlate clinically for evidence of a diarrheal illness. 4. No bowel obstruction. Allergies Allergy/AdvReac Type Severity Reaction Status Date / Time azithromycin [From Zithromax] AdvReac Verified 11/09/21 18:40 Home Medications Medication Instructions Recorded Confirmed Type alprazolam 0.5 mg tablet 0.5 mg PO BID PRN Anxiety 11/09/21 11/09/21 History Patient History Medical History No significant past medical history Surgical History No significant past surgical history Social History Smoking Status: Never smoker Second Hand Exposure: No; Do You Dip or Chew Tobacco: No; Tobacco Cessation Education Requested by Patient: No Hx Alcohol Use: Yes Hx Substance Use: No Preferred Language: Faroese Communication Ability: Effective Grain Shipper Required: No Beliefs That Will Affect Care: None Current Living Situation: Other Current Living Situation Comment: roommates Other Information That Helps Us Care for You: No Feels Safe at Home: Yes Safety Concerns: Feels Safe At This Time Assistive Devices: Glasses Review of Systems Review of Systems: All systems reviewed & are unremarkable except as noted in HPI & below Physical Exam Constitutional: WD/WN, vitals as above well groomed, cooperative and comfortable Eyes: PERRL, conjunctivae normal, anicteric sclerae ENMT: external ear and nose normal, oropharynx normal Respiratory: normal respiratory effort, lungs clear to auscultation Cardiovascular: RRR, no murmur, no edema Gastrointestinal (Abdomen): normal bowel sounds, soft, nontender, no hepatosplenomegaly Skin: no rashes, warm and dry no jaundice Psychiatric: A+Ox3, euthymic affect Lymphatic: no lymphedema Results & Data ([facility]) Vital Signs (Past 12 Hours) Vital Signs Temp Pulse Pulse Resp BP Pulse Ox O2 Del Method 11/10/21 08:00 36.7 C 104 H 16 124/59 L 94 11/10/21 02:57 36.7 C 98 H 18 116/74 98 Room Air 11/09/21 22:45 99 H 11/09/21 22:40 Room Air 11/09/21 22:40 37.5 C 104 H 18 113/71 100 Room Air
[2021-11-10] MEDS: ACETAMINOPHEN 1,000 MG/100 ML VIAL IV PRN (09:16)
[2021-11-10] MEDS ORDERED: LIDOCAINE 2% MPF LOCAL 5 ML VIAL INFIL ONE (10:00)
[2021-11-10] MEDS ORDERED: PROPOFOL IV EMULSION 10 MG/ML 20 ML VIAL IV ONE ×3 (10:00→10:55)
[2021-11-10] MEDS ORDERED: MIDAZOLAM HCL 1 MG/ML 2ML VIAL ONE (10:04)
[2021-11-10] MEDS ORDERED: PHENYLEPHRINE HCL 10 MG/ML VIAL ONE (10:55)
--- NOTE | 2021-11-10 11:01 | Anesthesiology Progress Note ---
Date of Service November 10, 2021 Anesthesia Post Procedure Vital Signs Vital Signs: Temp Pulse Pulse Resp BP BP Pulse Ox 11/10/21 10:52 94 H 18 108/56 L 94 11/10/21 10:01 98.8 F 90 16 146/76 H 100 11/10/21 08:00 98.1 F 104 H 16 124/59 L 94 11/10/21 02:57 98.1 F 98 H 18 116/74 98 11/09/21 22:45 99 H 11/09/21 22:40 11/09/21 22:40 99.5 F 104 H 18 113/71 100 11/09/21 18:20 109 H 18 123/77 98 11/09/21 16:27 98.1 F 80 18 131/69 96 O2 Del Method 11/10/21 10:52 Room Air 11/10/21 10:01 Room Air 11/10/21 08:00 11/10/21 02:57 Room Air 11/09/21 22:45 11/09/21 22:40 Room Air 11/09/21 22:40 Room Air 11/09/21 18:20 Room Air 11/09/21 16:27 Room Air Pain Intensity Lower Abdomen: Pain Intensity: 0 Transfer of Care Handoff Completed per policy Notes Mental Status: alert / awake / arousable and participated in evaluation Patient Amnestic to Procedure: Yes Nausea / Vomiting: adequately controlled Pain: adequately controlled Airway Patency, RR, SpO2: stable & adequate BP & HR: stable & adequate Hydration State: stable & adequate Anesthetic Complications: no major complications apparent and Pt Satisfied with anesthetic care
--- NOTE | 2021-11-10 11:02 | GI REPORT ---
Patient Name: Price Raymond Procedure Date: 11/10/2021 10:02 AM Date of : 2000 Admit Type: Inpatient Age: 21 Gender: Male Attending MD: Karla Benitez DO Procedure: Upper GI endoscopy Providers: Karla Benitez DO Referring MD: Monica Dumont Indications: Coffee-ground emesis, Melena Patient Profile: This is a 21 year old male. Refer to note in patient chart for documentation of history and physical. Medicines: Monitored Anesthesia Care Complications: No immediate complications. Estimated Blood Loss: Estimated blood loss was minimal. Procedure: Pre-Anesthesia Assessment: - Prior to the procedure, a History and Physical was performed, and patient medications and allergies were reviewed. The risks and benefits of the procedure and the sedation options and risks were discussed with the patient. All questions were answered and informed consent was obtained. Patient identification and proposed procedure were verified by the physician, the nurse and the icu clerk in the procedure room. Mental Status Examination: alert and oriented. Airway Examination: Mallampati Class II (the uvula but not tonsillar pillars visualized). Respiratory Examination: clear to auscultation. CV Examination: RRR, no murmurs, no S3 or S4. Prophylactic Antibiotics: The patient does not require prophylactic antibiotics. Prior Anticoagulants: The patient has taken no previous anticoagulant or antiplatelet agents. ASA Grade Assessment: II - A patient with mild systemic disease. After reviewing the risks and benefits, the patient was deemed in satisfactory condition to undergo the procedure. The anesthesia plan was to use monitored anesthesia care (MAC). Immediately prior to administration of medications, the patient was re-assessed for adequacy to receive sedatives. The physical status of the patient was re-assessed after the procedure. After obtaining informed consent, the endoscope was passed under direct vision. Throughout the procedure, the patient's blood pressure, pulse, and oxygen saturations were monitored continuously. The Endoscope was introduced through the mouth, and advanced to the duodenal bulb. The upper GI endoscopy was accomplished without difficulty. The patient tolerated the procedure well. Findings: The Z-line was regular and was found 36 cm from the incisors. A large bleeding Vicky-Luna tear with stigmata of recent bleeding was found at the GE junction. For hemostasis, one hemostatic clip was successfully placed. There was no bleeding at the end of the procedure. A large non-bleeding Vicky-Luna tear with stigmata of recent bleeding was found at the GE junction across from the other vicky-luna tear. For hemostasis, one hemostatic clip was successfully placed. There was no bleeding at the end of the procedure. A medium-sized hiatal hernia was present. The entire examined stomach was normal. One oozing cratered duodenal ulcer with oozing hemorrhage (Rickey Class Ib) was found in the duodenal bulb. The lesion was 10 mm in largest dimension. Area was unsuccessfully injected with 2 mL of a 1:10,000 solution of epinephrine for hemostasis. Coagulation for hemostasis using heater probe was successful. Diffuse erythematous mucosa was found in the duodenal bulb. Impression: - Z-line regular, 36 cm from the incisors. - A large bleeding Vicky-Luna tear with stigmata of recent bleeding was found at the GE junction. For hemostasis, one hemostatic clip was successfully placed. There was no bleeding at the end of the procedure. - A large non-bleeding Vicky-Luna tear with stigmata of recent bleeding was found at the GE junction across from the other noted actively bleeding vicky-luna tear. For hemostasis, one hemostatic clip was successfully placed. There was no bleeding at the end of the procedure. - Medium-sized hiatal hernia. - Normal stomach. - One oozing cratered duodenal ulcer with oozing hemorrhage (Rickey Class Ib) was found in the duodenal bulb. The lesion was 10 mm in largest dimension that could be seen but may be larger as unable to pass the sweep into the second portion of the duodenum given significant edema. Area was unsuccessfully injected with 2 mL of a 1:10,000 solution of epinephrine for hemostasis. Coagulation for hemostasis using heater probe was successful. - Erythematous duodenopathy. - No specimens collected. Recommendation: - [facility]. - Remain NPO. - PPI drip - Anti-emetics for nausea to prevent any wretching - [facility]. If he re-bleeds over the weekend he will need interventional radiology for further management and he is high risk for re-bleeding. - Avoid all NSAIDS and alcohol Karla Benitez DO 11/10/2021 11:01:49 AM Note Initiated On: 11/10/2021 10:02 AM Number of Addenda: 0 I attest to the content of the Intraoperative Record and orders documented therein, exceptions below {[id number]}
--- NOTE | 2021-11-10 11:46 | Communication Note ---
Date of Service: November 10, 2021 EGD completed today with findings below: Impression: - Z-line regular, 36 cm from the incisors. - A large bleeding Patricia-Vidal tear with stigmata of recent bleeding was found at the GE junction. For hemostasis, one hemostatic clip was successfully placed. There was no bleeding at the end of the procedure. - A large non-bleeding Patricia-Vidal tear with stigmata of recent bleeding was found at the GE junction across from the other noted actively bleeding patricia-vidal tear. For hemostasis, one hemostatic clip was successfully placed. There was no bleeding at the end of the procedure. - Medium-sized hiatal hernia. - Normal stomach. - One oozing cratered duodenal ulcer with oozing hemorrhage (Rickey Class Ib) was found in the duodenal bulb. The lesion was 10 mm in largest dimension that could be seen but may be larger as unable to pass the sweep into the second portion of the duodenum given significant edema. Area was unsuccessfully injected with 2 mL of a 1:10,000 solution of epinephrine for hemostasis. Coagulation for hemostasis using heater probe was successful. - Erythematous duodenopathy. - No specimens collected. Plan: -Remain NPO -PPI gtt -Anti-emetics for nausea to prevent any wretching -Avoid all NSAIDS and alcohol -Would recommend transferring patient to a tertiary care center. If he re-bleeds over the weekend he will need interventional radiology for further management and he is high risk for re-bleeding. Primary team, Dr. Dumont, attempted to transfer patient to [facility] and [facility] [place]. I also spoke with the transfer center at [facility] and at this time they denied transfer given bleeding is controlled at this moment and patient is HDS, however they stated that if he does have evidence of re-bleeding to call back for transfer at that time. We discussed and he will be monitored closely in step-down with frequent H/H checks. If evidence of ongoing overt bleeding (hematemesis, melena, hematochezia) or dropping H/H we will request transfer again at that time. Karla Benitez, DO Gastroenterology and Hepatology
[2021-11-10] MEDS ORDERED: LACTATED RINGER'S 1,000 ML IV SCH (12:00)
[2021-11-10 12:04] LABS: Hematocrit (blood only) 32.3 % (40.1-51.0); Hemoglobin 11.3 g/dl (14.0-18.0); Mean Corpuscular Hemoglobin 29.2 pg (25.0-34.0); Mean Corpuscular Volume 83.5 fL (80.0-100.0); Mean Platelet Volume 10.1 fL (9.4-12.4); Platelet Count 215 K/uL (130-400); RDW Coefficient of Variation 13.2 % (11.5-14.5); RDW Standard Deviation 39.8 fL (36.4-46.3); Red Blood Count 3.87 M/uL (4.63-6.08); White Blood Count 5.84 K/ul (4.8-10.8)
[2021-11-10 12:26] LABS: Basophils # (auto) 0.06 K/uL (0-0.2); Eosinophils # (auto) 0.26 K/uL (0-0.50); Eosinophils % (auto) 4.5 %; Immature Granulocytes # (auto) 0.01 K/uL (0.00-0.02); Immature Granulocytes % (auto) 0.2 %; Lymphocytes # (auto) 1.53 K/uL (1.2-3.4); Lymphocytes % (auto) 26.2 %; Monocytes # (auto) 0.48 K/uL (0.24-0.82); Monocytes % (auto) 8.2 %; Neutrophils % (auto) 59.9 %
--- NOTE | 2021-11-10 14:52 | Hospitalist Progress Note ---
Date of Service November 10, 2021 Assessment & Plan (1) GI bleed: Plan: Pt is a 21 yo male with no significant PMH presenting with coffee ground emesis 4x with dark, tarry stools that began yesterday. Acute blood loss anemia sec to Upper GI bleed d/t Duodenal ulcer and 2 patricia luna tear - In ER afebrile, hemodynamically stable, and stable on RA, but he had been tachycardic - today, VS tachycardic, others WNL - Started on Protonix in the ED and kept NPO with LR before EGD - Ordered type and screen in case of transfusion - EGD revealed 2 large, bleeding patricia-emanuel tears that were both clipped in addition to a edematous 10 mm duodenal ulcer - per GI, continue Protonix drip, NPO, and transfer to tertiary center d/t high risk for rebleeding (requiring IR) - receiving facility unable to take pt immediately d/t lack of beds, monitor pt for rebleeding in mean time - Hb trend 14.4 (11/09) to 11.3 at both 4 AM and 11 AM (11/10) - Zofran, prn for nausea/vomiting - avoid NSAIDs and alcohol - NPO with NS 100 mL/hr (2) Peptic ulcer disease: Plan Diet: NPO Fluids: NS 100 mL/hr, protonix drip DVT ppx: low risk/bleeding Dispo: med/tele Admission and Anticipated Discharge Date Admission Date: November 09, 2021 Supervising Physician Co-Signing Physician Notes Resident Physician Supervision Note: I independently interviewed and examined the patient and verified the butler history and physical, reviewed labs and image studies and agree with resident Dr. Scott findings and care plan. Subjective Pt is a 21 yo male with no significant PMH presenting with coffee ground emesis 4x and dark, tarry stools that began yesterday. 11/10/2021: Pt explains he has felt fatigued and constipation for the last few days. He felt lightheaded and dehydrated. He came to the hospital after experiencing 4 episodes of coffee ground emesis. He has also noted dark stools over the past day. He denies any hx of ulcers or recent alcohol/NSAID use. This AM, pt denies any pain or further vomiting. He denies chest pain, SOB, dizziness, abdominal pain, BRBPR, and hematemesis. Physical Exam Constitutional: NAD, vitals WNL. Respiratory: CTA bilaterally. No rhonchi, wheezing, or crackles. Non labored breathing. Cardiovascular: RRR. No murmur noted. Gastrointestinal (Abdomen): Mostly nontender, +BS. Mild midline pain inferior to umbilicus upon palpation. No masses noted. Results & Data Results & Data ([facility]) Vital Signs (Past 12 Hours) Vital Signs Temp Pulse Resp BP Pulse Ox O2 Del Method 11/10/21 11:22 92 H 16 114/56 L 99 Room Air 11/10/21 11:07 95 H 16 105/61 96 Room Air 11/10/21 10:52 94 H 18 108/56 L 94 Room Air 11/10/21 10:01 37.1 C 90 16 146/76 H 100 Room Air 11/10/21 08:00 36.7 C 104 H 16 124/59 L 94 11/10/21 02:57 36.7 C 98 H 18 116/74 98 Room Air Resident Activity Tracking Resident Involvement: Resident Care Provided Care Provided: Adult Hospital Medicine
[2021-11-10 17:04] LABS: Hematocrit (blood only) 31.3 % (40.1-51.0); Hemoglobin 10.7 g/dl (14.0-18.0)
[2021-11-10 22:55] LABS: Hematocrit (blood only) 30.7 % (40.1-51.0); Hemoglobin 10.5 g/dl (14.0-18.0)
[2021-11-11] MEDS: PANTOprazole 40 MG in DEXTROSE 5% 100 ML IV SCH ×5 (04:07→22:04)
[2021-11-11 06:16] LABS: Basophils # (auto) 0.04 K/uL (0-0.2); Basophils % (auto) 0.8 %; Eosinophils # (auto) 0.25 K/uL (0-0.50); Eosinophils % (auto) 5.1 %; Hematocrit (blood only) 29.6 % (40.1-51.0); Hemoglobin 10.2 g/dl (14.0-18.0); Immature Granulocytes # (auto) 0.01 K/uL (0.00-0.02); Immature Granulocytes % (auto) 0.2 %; Lymphocytes # (auto) 1.32 K/uL (1.2-3.4); Lymphocytes % (auto) 26.9 %; Mean Corpuscular Hemoglobin 28.8 pg (25.0-34.0); Mean Corpuscular Hgb Conc 34.5 g/dL (32.0-36.0); Mean Corpuscular Volume 83.6 fL (80.0-100.0); Mean Platelet Volume 10.4 fL (9.4-12.4); Monocytes # (auto) 0.36 K/uL (0.24-0.82); Monocytes % (auto) 7.3 %; Neutrophils # (auto) 2.93 K/uL (1.4-6.5); Neutrophils % (auto) 59.7 %; Platelet Count 193 K/uL (130-400); RDW Standard Deviation 39.3 fL (36.4-46.3); Red Blood Count 3.54 M/uL (4.63-6.08); White Blood Count 4.91 K/ul (4.8-10.8)
[2021-11-11 06:45] LABS: BUN Creatinine Ratio 13.8 (10-20); Calcium 8.6 mg/dl (8.5-10.1); Creatinine Clr Calc Pharmacy 151.2 ml/min; Est GFR (Non-African American) 123.4 ml/min; Potassium 3.6 mmol/L (3.5-5.1)
[2021-11-11] MEDS: LACTATED RINGER'S 1,000 ML IV SCH ×2 (08:16→18:35)
[2021-11-11 12:57] LABS: Hematocrit (blood only) 29.8 % (40.1-51.0); Hemoglobin 10.5 g/dl (14.0-18.0)
--- NOTE | 2021-11-11 13:07 | Gastroenterology Progress Note ---
Date of Service November 11, 2021 Assessment & Plan (1) Peptic ulcer disease: Plan: Continue Liquid diet today PPI for 72 hrs If has signs of rebleed will likely require IR given size of duodenal ulcer AFter 72 hrs BID PPI for 2 months No NSAIDS Repeat EGD in 2 months as outpatient (2) Upper GI bleed: (3) Vicky-Vidal tear: Admission and Anticipated Discharge Date Admission Date: November 09, 2021 Subjective Doing well, no signs of bleeding, pain or abdominal discomfort Hb stable Physical Exam Constitutional: NAD, vitals WNL. Respiratory: CTA bilaterally. No rhonchi, wheezing, or crackles. Non labored breathing. Cardiovascular: RRR. No murmur noted. Gastrointestinal (Abdomen): Mostly nontender, +BS. Mild midline pain inferior to umbilicus upon palpation. No masses noted. Results & Data ([facility]) Vital Signs (Past 12 Hours) Vital Signs Temp Pulse Resp BP Pulse Ox O2 Del Method 11/11/21 11:54 36.6 C 97 H 18 117/67 100 Room Air 11/11/21 07:09 36.8 C 86 18 116/73 99 Room Air 11/11/21 03:38 36.6 C 84 18 94/61 L 98
--- NOTE | 2021-11-11 13:41 | Hospitalist Progress Note ---
Date of Service November 11, 2021 Assessment & Plan (1) Upper GI bleed: Plan: Pt is a 21 yo male with no significant PMH presenting with coffee ground emesis 4x with dark, tarry stools that began yesterday. Acute blood loss anemia sec to upper GI bleed d/t Duodenal ulcer and 2 patricia vidal tears - In ER afebrile, hemodynamically stable, and stable on RA, but he had been tachycardic - Throughout stay, HR 90s, others vitals WNL - Started on Protonix in the ED and kept NPO with LR before EGD - Type and screen in case of transfusion - EGD revealed 2 large, bleeding patricia-emanuel tears that were both clipped in addition to a edematous 10 mm duodenal ulcer - If pt rebleeds, will need transfer to tertiary care for IR - Hb trend 14.4, 11.3, 10.7, 10.5, 10.2, back to 10.5 at noon today - GI advanced diet to clear liquids this AM and to continue today with LR 100 mL/hr - per GI, will need PPI x72 hours then he can be switched to PO PPI BID x2 months with repeat EGD in 2 months (2) Peptic ulcer disease: (3) Patricia-Vidal tear: Plan Diet: clear liquids Fluids: LR 100 mL/hr, protonix drip x72 hrs DVT ppx: low risk/bleeding Dispo: med/tele Admission and Anticipated Discharge Date Admission Date: November 09, 2021 Supervising Physician Co-Signing Physician Notes I also saw the patient and confirmed butler portions of the history and physical examination. Agree with the impression and plan as noted the resident documentation. Upon our exam late morning, the patient was seated in bed watching television. He was eating Jell-O. He denied any epigastric discomfort. He did note some lower abdominal cramping/discomfort, similar to yesterday. Exam 117/67, 97, 18, 36.6, 107 room air Pleasant alert. No distress. Cardiovascular regular. Lungs clear with nonlabored respiration Data Hemoglobin this morning 10.2, afternoon repeat 10.5. Sodium 139, potassium 3.6, BUN 12, creatinine 0.87. Impression and plan Peptic ulcer disease Upper GI bleed Patricia-Vidal tear Acute blood loss anemia secondary to above Remains hemodynamically stable Repeat hemoglobin today slightly improved Will continue liquid diet Continue IV PPI x72 hours, then transition to p.o. twice daily Will need follow-up EGD, timing per gastroenterology If evidence of rebleed, will need transfer to facility with interventional radiology Subjective Pt is a 21 yo male with no significant PMH presenting with coffee ground emesis 4x and dark, tarry stools that began yesterday. 11/10/2021: Pt explains he has felt fatigued and constipation for the last few days. He felt lightheaded and dehydrated. He came to the hospital after experiencing 4 episodes of coffee ground emesis. He has also noted dark stools over the past day. He denies any hx of ulcers or recent alcohol/NSAID use. This AM, pt denies any pain or further vomiting. He denies chest pain, SOB, dizziness, abdominal pain, BRBPR, and hematemesis. 11/11/2021: Pt did well overnight. He is resting comfortably in bed. So far, seems to be tolerating his progression to clear liquids. No more episodes of vomiting. He does endorse 5-6 BM yesterday that were black and tarry. He still has the dull abdominal pain located inferior to his umbilicus. He denies SOB, chest pain, dizziness, lightheadedness. Physical Exam Constitutional: NAD. Vitals WNL. Eyes: no conjunctival abnormality Respiratory: CTA bilaterally. No rhonchi, wheezing, or rales. Non labored breathing. Cardiovascular: RRR. No murmur noted. No LL edema. Gastrointestinal (Abdomen): Nontender, +BS. No masses noted. Skin: no rashes, warm and dry Psychiatric: Orientation: alert and oriented x 3 Results & Data Results & Data ([facility]) Vital Signs (Past 12 Hours) Vital Signs Temp Pulse Resp BP Pulse Ox O2 Del Method 11/11/21 11:54 36.6 C 97 H 18 117/67 100 Room Air 11/11/21 07:09 36.8 C 86 18 116/73 99 Room Air 11/11/21 03:38 36.6 C 84 18 94/61 L 98 Laboratory Results Hgb 10.5 g/dl (14.0-18.0) L 11/11/21 12:28 Hct 29.8 % (40.1-51.0) L 11/11/21 12:28 Resident Activity Tracking Resident Involvement: Resident Care Provided Care Provided: Adult [facility] Medicine
[2021-11-11] MEDS: ACETAMINOPHEN 1,000 MG/100 ML VIAL IV PRN (17:09)
[2021-11-11 18:45] LABS: Hematocrit (blood only) 28.7 % (40.1-51.0)
[2021-11-12 00:53] LABS: Hematocrit (blood only) 30.1 % (40.1-51.0); Hemoglobin 10.7 g/dl (14.0-18.0)
[2021-11-12] MEDS: PANTOprazole 40 MG in DEXTROSE 5% 100 ML IV SCH ×5 (02:50→23:25)
[2021-11-12 06:42] LABS: Hematocrit (blood only) 30.1 % (40.1-51.0); Hemoglobin 10.7 g/dl (14.0-18.0)
--- NOTE | 2021-11-12 07:35 | Hospitalist Progress Note ---
Date of Service November 12, 2021 Assessment & Plan (1) Upper GI bleed: Plan: Pt is a 21 yo male with no significant PMH presenting with coffee ground emesis 4x with dark, tarry stools that began the day before presentation (11/09) Acute blood loss anemia sec to upper GI bleed d/t Duodenal ulcer and 2 patricia vidal tears - In ER afebrile, hemodynamically stable, and stable on RA, but he had been tachycardic - Started on Protonix in the ED and kept NPO with LR before EGD - Type and screen in case of transfusion - EGD revealed 2 large, bleeding patricia-vidal tears that were both clipped in addition to an edematous 10 mm duodenal ulcer - Hb has been stable. Latest Hb 11.7 - Clear liquid diet, d/c fluids last night d/t adequate PO intake - per GI, will need PPI x72 hours then he can be switched to PO PPI BID x2 months with repeat EGD in 2 month - today day 3 of IV PPI - if re bleed, transfer to tertiary care for IR (2) Peptic ulcer disease: (3) Patricia-Vidal tear: Plan Diet: clear liquids Fluids: protonix drip x72 hrs (day 3) DVT ppx: low risk/bleeding Dispo: med/tele Admission and Anticipated Discharge Date Admission Date: November 09, 2021 Supervising Physician Co-Signing Physician Notes I also saw the patient and confirmed butler portions of the history and physical examination. Patient without complaints this morning. The mild lower abdominal cramping he had yesterday has resolved. Exam 121/72, 101, 17, 36.5, 1% room air Pleasant alert. No distress. Cardiovascular regular. Lungs clear with nonlabored respiration Data Hemoglobin 11.4 Impression and plan Peptic ulcer disease Upper GI bleed Patricia-Vidal tear Acute blood loss anemia secondary to above Remains hemodynamically stable Hemoglobin stable Diet per gastroenterology Continue IV PPI x72 hours, then transition to p.o. twice daily Will need follow-up EGD, timing per gastroenterology If evidence of rebleed, will need transfer to facility with interventional radiology Subjective Pt is a 21 yo male with no significant PMH presenting with coffee ground emesis 4x and dark, tarry stools that began the day before presentation (11/09) 11/10/2021: Pt explains he has felt fatigued and constipation for the last few days. He felt lightheaded and dehydrated. He came to the hospital after e xperiencing 4 episodes of coffee ground emesis. He has also noted dark stools over the past day. He denies any hx of ulcers or recent alcohol/NSAID use. This AM, pt denies any pain or further vomiting. He denies chest pain, SOB, dizziness, abdominal pain, BRBPR, and hematemesis. 11/11/2021: Pt did well overnight. He is resting comfortably in bed. So far, seems to be tolerating his progression to clear liquids. No more episodes of vomiting. He does endorse 5-6 BM yesterday that were black and tarry. He still has the dull abdominal pain located inferior to his umbilicus. He denies SOB, chest pain, dizziness, lightheadedness. 11/12/2021: Pt resting in bed this morning. He is feeling well. No vomiting episodes and no BM since yesterday. He denies lightheadedness, dizziness, SOB, and chest pain. His abdominal pain seems to be better today. Physical Exam Constitutional: NAD. Vitals WNL. Eyes: no conjunctival abnormality Respiratory: CTA bilaterally. No rhonchi, wheezing, or crackles. Non labored breathing. Cardiovascular: RRR. No murmur noted. No LL edema. Gastrointestinal (Abdomen): Nontender, +BS. No masses noted. Skin: no rashes, warm and dry Psychiatric: Alert. Mood and affect congruent. Results & Data Results & Data ([facility]) Vital Signs (Past 12 Hours) Vital Signs Temp Pulse Pulse Resp BP Pulse Ox O2 Del Method 11/12/21 04:16 36.4 C L 78 16 128/80 99 11/11/21 20:40 Room Air 11/12/21 00:12 36.6 C 84 16 127/73 100 Room Air 11/11/21 23:52 66 Laboratory Results Hgb 11.4 g/dl (14.0-18.0) L 11/12/21 11:35 Hct 31.6 % (40.1-51.0) L 11/12/21 11:35 Resident Activity Tracking Resident Involvement: Resident Care Provided Care Provided: Adult [facility] Medicine
[2021-11-12 12:12] LABS: Hematocrit (blood only) 31.6 % (40.1-51.0); Hemoglobin 11.4 g/dl (14.0-18.0)
--- NOTE | 2021-11-12 13:11 | Medical Student Progress Note ---
Date of Service November 12, 2021 Assessment & Plan (1) Upper GI bleed: Plan: Patient is a 21 year old male who presented to the emergency department 3 days ago with chief concern of 4 episodes of coffee ground emesis and dark, tarry stools. Upper GI Bleed - While in the ED, had CT of the abdomen and pelvis performed which showed inflammatory changes of the proximal duodenum. H/H adequate, NPO, and started on PPI (pantoprazole) in ED. - Afebrile in ED, hemodynamically stable. - Slightly tachycardic with HR in 60's-100's throughout stay, mostly hovering in the 90's. Other vitals are within normal limits. - Hgb fell from 14.4 to 11.3 on 11/09. Then trended 10.7, 10.5, 10.2, 10.5. 10.0, 10.7, 11.4 at 11:35 AM this morning (11/12). - EGD on 11/10 revealed 2 large, bleeding patricia-vidal tears that were both clipped. Also revealed an erythematous and edematous 10 mm duodenal ulcer with oozing hemorrhage. Patricia-Vidal Tears & Peptic Ulcer Disease - GI advanced diet to clear liquids on 11/11. - Based on EGD results, GI advised for patient to remain NPO and be on PPI drip for 72 hours. Patient is on his third day of PPI. Outpatient, he should be on PPI BID for 2 months, no NSAIDS. Also recommend repeat EGD in 2 months outpatient. - Per GI, if patient has signs of rebleed, he will likely require IR consultation. (2) Patricia-Vidal tear: (3) Peptic ulcer disease: Admission and Anticipated Discharge Date Admission Date: November 09, 2021 Shannan Thrasher is a 21 year old male who presented to the [facility] ED 3 days ago (11/09) with chief concern of 4 episodes of coffee ground emesis and dark, tarry stools. These symptoms began the same day as presentation. 11/12: I evaluated the patient who reports he has been feeling overall better. He was started on a clear liquid diet yesterday, which he reports felt weird at first after having minimal intake for a couple of days, but he is tolerating it well now. Reports he was told he might be able to try solid foods tonight for dinner or tomorrow. He had 5-6 dark stools on Saturday (11/10), but has had no bowel movements the last two days. States he is urinating normally and has had no hematuria. His fatigue has improved. He is still experiencing mild, dull lower abdominal pain below his umbilicus, which he reports is more concentrated on his left side than right, but this pain is gradually improving. He had a headache last night, which was alleviated by acetaminophen. Reports no other headaches, lightheadedness, dizziness, vomiting, or chest pain. PMH: He has no history of frequent NSAID use or GI ulcers. 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 Reports drinking alcohol on the weekends. States he usually drinks about 3-4 drinks per weekend night. Prior to my evaluation: 11/09: Per ED note, Price had been constipated for a couple days prior, for which he was taking a stool softener for alleviation, but he was otherwise at baseline health. Upon waking up on 11/09, he felt tired and dehydrated. He then began feeling nauseous, lightheaded, diaphoretic, and dizzy, prior to his first episode of emesis. A picture of the emesis revealed blood and digested blood. Also reported associated symptom of mild, dull lower abdominal pain, which did not radiate. Physical Exam Constitutional: Well-developed male, resting comfortably in bed. In no acute distress. Eyes: Conjunctivae pink with no drainage or abnormality. Sclerae anicteric. ENMT: Oral mucosa pink and moist. No erythema. Normal palate elevation. Neck: Normal range of motion. Appeared normal on visual inspection. Respiratory: Normal chest wall rise. Lungs clear to auscultation bilaterally. No rhonchi or wheezes. Cardiovascular: Regular rate and rhythm. No murmurs, rubs, gallops. No LE edema. Gastrointestinal (Abdomen): Nondistended. Mild tenderness to palpation over LLQ, otherwise nontender. Bowel sounds present. No masses palpated. Skin: Warm and dry. No rashes. Neurologic: Alert and oriented x 3. Psychiatric: Appropriate mood and affect. Results & Data ([facility]) Vital Signs (Past 12 Hours) Vital Signs Temp Pulse Pulse Resp BP Pulse Ox O2 Del Method 11/12/21 08:02 36.6 C 67 17 117/73 98 Room Air 11/12/21 04:16 36.4 C L 78 16 128/80 99 11/12/21 00:12 36.6 C 84 16 127/73 100 Room Air 11/11/21 23:52 66 Laboratory Results Hgb: 11.4 g/dL @ 11:35 AM 11/12 (increased from 10.7 g/dL @ 5:58 AM 11/12) Hct: 31.6% @ 11:35 AM 11/12 (increased from 30.1% @ 5:58 AM 11/12) Medications Administered Receiving in Hospital Pantoprazole Sodium 40 mg in dextrose 100 mL @ 8 mg/hr IV, Q5H Ondansetron HCl 4 mg IV, Q4H prn Acetaminophen 1000 mg in 100 mL @ 400 mL/hr IV, Q6H prn Home alprazolam 0.5 mg PO BID PRN for anxiety
[2021-11-12 18:08] LABS: Hematocrit (blood only) 32.1 % (40.1-51.0); Hemoglobin 11.4 g/dl (14.0-18.0)
[2021-11-12] MEDS ORDERED: FLUoxetine HCL 20 MG CAP PO SCH (21:00)
[2021-11-12] MEDS ORDERED: FLUoxetine HCL 10 MG CAP PO SCH (21:00)
[2021-11-13 01:01] LABS: Hemoglobin 11.8 g/dl (14.0-18.0)
[2021-11-13] MEDS: PANTOprazole 40 MG in DEXTROSE 5% 100 ML IV SCH ×2 (04:05→08:04)
[2021-11-13 08:13] LABS: Hematocrit (blood only) 31.6 % (40.1-51.0); Hemoglobin 11.3 g/dl (14.0-18.0)
--- NOTE | 2021-11-13 08:32 | Hospitalist Progress Note ---
Date of Service November 13, 2021 Assessment & Plan (1) Upper GI bleed: Plan: Pt is a 21 yo male with no significant PMH presenting with coffee ground emesis 4x with dark, tarry stools that began the day before presentation (11/09) Acute blood loss anemia sec to upper GI bleed d/t Duodenal ulcer and 2 patricia vidal tears - In ER afebrile, hemodynamically stable, and stable on RA, but he had been tachycardic - Started on Protonix in the ED and kept NPO with LR before EGD - Type and screen in case of transfusion - EGD revealed 2 large, bleeding patricia-vidal tears that were both clipped in addition to an edematous 10 mm duodenal ulcer - Hb has been stable. Latest Hb 11.3 - Full liquid diet - per GI, will need PPI x72 hours then he can be switched to PO PPI BID x2 months with repeat EGD in 2 month - completed 3 days of IV PPI, transition to oral today - if re bleed, transfer to tertiary care for IR (2) Peptic ulcer disease: (3) Patricia-Vidal tear: Plan Diet: full liquids Fluids: none DVT ppx: low risk/bleeding Dispo: med/tele Admission and Anticipated Discharge Date Admission Date: November 09, 2021 Subjective Pt is a 21 yo male with no significant PMH presenting with coffee ground emesis 4x and dark, tarry stools that began the day before presentation (11/09) 11/10/2021: Pt explains he has felt fatigued and constipation for the last few days. He felt lightheaded and dehydrated. He came to the hospital after experiencing 4 episodes of coffee ground emesis. He has also noted dark stools over the past day. He denies any hx of ulcers or recent alcohol/NSAID use. This AM, pt denies any pain or further vomiting. He denies chest pain, SOB, dizziness, abdominal pain, BRBPR, and hematemesis. 11/11/2021: Pt did well overnight. He is resting comfortably in bed. So far, seems to be tolerating his progression to clear liquids. No more episodes of vomiting. He does endorse 5-6 BM yesterday that were black and tarry. He still has the dull abdominal pain located inferior to his umbilicus. He denies SOB, chest pain, dizziness, lightheadedness. 11/12/2021: Pt resting in bed this morning. He is feeling well. No vomiting episodes and no BM since yesterday. He denies lightheadedness, dizziness, SOB, and chest pain. His abdominal pain seems to be better today. 11/13/2021: Results & Data Results & Data ([facility]) Vital Signs (Past 12 Hours) Vital Signs Temp Pulse Pulse Resp BP Pulse Ox O2 Del Method 11/13/21 07:24 36.6 C 80 17 114/70 98 Room Air 11/13/21 04:45 36.8 C 73 18 119/74 95 Room Air 11/12/21 23:55 85 11/12/21 23:32 36.6 C 74 18 116/68 98 Room Air Resident Activity Tracking Resident Involvement: Resident Care Provided Care Provided: Adult Hospital Medicine
--- NOTE | 2021-11-13 09:40 | Medical Student Progress Note ---
Date of Service November 13, 2021 Assessment & Plan (1) Upper GI bleed: Plan: Patient is a 21 year old male who presented to the emergency department 3 days ago with chief concern of 4 episodes of coffee ground emesis and dark, tarry stools. Upper GI Bleed - While in the ED, had CT of the abdomen and pelvis performed which showed inflammatory changes of the proximal duodenum. H/H adequate, NPO, and started on PPI (pantoprazole) in ED. - Afebrile in ED, hemodynamically stable. - Slightly tachycardic with HR in 60's-100's throughout stay, mostly hovering in the 90's. Other vitals are within normal limits. - HR back down to 70's-80's prior to discharge. - Hgb fell from 14.4 to 11.3 on 11/09, then fell as low as 10.0. - Hgb and Hct steadily increasing. Hgb has been stable around 11.4-11.8 over last day and is 11.3 at 6:06 AM this morning (11/13). Patricia-Vidal Tears & Peptic Ulcer Disease - EGD on 11/10 revealed 2 large, bleeding patricia-vidal tears that were both clipped. Also revealed an erythematous and edematous 10 mm duodenal ulcer with oozing hemorrhage. - GI advanced diet to clear liquids on 11/11. - Based on EGD results, GI advised for patient to remain NPO and be on PPI drip for 72 hours. Patient completed this PPI regimen yesterday (11/12). - Per GI, if patient has signs of rebleed, he will likely require IR consultation. - Outpatient, he should be on PPI BID for 2 months, no NSAIDS or alcohol. Also recommend repeat EGD in 2 months outpatient. - Given symptomatic improvement and stable Hb, patient will be discharged home. Given return precautions and follow up recommendations. Plan to take PPI BID for 2 months, and follow up in 2 months with GI for repeat EGD. Also advised to avoid NSAIDs and alcohol. Anxiety - Takes fluoxetine QD for anxiety. Otherwise reports not having many activities for stress management. Was counseled accordingly. (2) Patricia-Vidal tear: (3) Peptic ulcer disease: (4) Anxiety: Plan Patient's Hgb has been stable. He has experienced no bowel movements since Saturday (11/10), and hence has had no blood in bowel movements. He has not vomited again since presentation, and hence has not had blood in vomit. He is not experiencing SOB, weakness, fatigue, lightheadedness, or dizziness related to anemia or bleeding. He is safe to discharge home. Given return precautions and follow up recommendations. Plan to take PPI BID for 2 months, and follow up in 2 months with GI for repeat EGD. Also advised to avoid NSAIDs and alcohol. He was also counseled on stress management and the benefits of finding enjoyable activities to relieve stress. Admission and Anticipated Discharge Date Admission Date: November 09, 2021 Anticipated date of discharge: 11/13/21 Shannan Thrasher is a 21 year old male who presented to the [facility] ED 3 days ago (11/09) with chief concern of 4 episodes of coffee ground emesis and dark, tarry stools. These symptoms began the same day as presentation. Prior to my evaluation: 11/09: Per ED note, Price had been constipated for a couple days prior, for which he was taking a stool softener for alleviation, but he was otherwise at baseline health. Upon waking up on 11/09, he felt tired and dehydrated. He then began feeling nauseous, lightheaded, diaphoretic, and dizzy, prior to his first episode of emesis. A picture of the emesis revealed blood and digested blood. Al so reported associated symptom of mild, dull lower abdominal pain, which did not radiate. 11/12: I evaluated the patient who reports he has been feeling overall better. He was started on a clear liquid diet yesterday, which he reports felt weird at first after having minimal intake for a couple of days, but he is tolerating it well now. Reports he was told he might be able to try solid foods tonight for dinner or tomorrow. He had 5-6 dark stools on Saturday (11/10), but has had no bowel movements the last two days. States he is urinating normally and has had no hematuria. His fatigue has improved. He is still experiencing mild, dull lower abdominal pain below his umbilicus, which he reports is more concentrated on his left side than right, but this pain is gradually improving. He had a headache last night, which was alleviated by acetaminophen. Reports no other headaches, lightheadedness, dizziness, vomiting, or chest pain. 8/29: Patient did well overnight and is resting in bed this morning. Explains that he is feeling better overall today compared to yesterday. His biggest concern is pain and discomfort in his arms related to multiple IV's and the number of times he has had blood taken. Otherwise, his weakness and fatigue have improved. He is still on a clear liquid diet, which he is tolerating well; he feels ready to try solid foods. He has no nausea or abdominal pain accompanying intake of fluids. Reports mild, intermittent SOB, which he feels is related to being tired/positioning in the hospital bed. His abdominal pain has improved since yesterday and states he doesn't notice it as much today. He has had no bowel movements since Saturday night (11/10). Denies vomiting, chest pain, headaches, dizziness, lightheadedness. PMH: He has no history of frequent NSAID use or GI ulcers. States he might use NSAIDs 2 or 3 times per month as needed. He is on fluoxetine QD for anxiety. Reports he doesn't have many activities he utilizes to manage stress. 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 He is studying [employer]. Reports drinking alcohol on the weekends. States he usually drinks about 3-4 drinks per weekend night. Physical Exam Constitutional: Well-developed male, resting comfortably in bed. In no acute distress. Vitals WNL. Eyes: Conjunctivae pink with no drainage or abnormality. Sclerae anicteric. ENMT: Oral mucosa pink and moist. Trachea midline. Neck: Normal range of motion. Appeared normal on visual inspection. Respiratory: Normal chest wall rise. Lungs clear to auscultation bilaterally. No rhonchi or wheezes. Cardiovascular: Regular rate and rhythm. No murmurs, rubs, or gallops. No LE edema. Gastrointestinal (Abdomen): Nontender, nondistended. Bowel sounds present. No masses palpated. Skin: Warm and dry. No rashes or lesions. Neurologic: Alert & oriented x 3. Psychiatric: Appropriate mood & affect. Results & Data ([facility]) Vital Signs (Past 12 Hours) Vital Signs Temp Pulse Pulse Resp BP Pulse Ox O2 Del Method 11/13/21 07:24 36.6 C 80 17 114/70 98 Room Air 11/13/21 04:45 36.8 C 73 18 119/74 95 Room Air 11/12/21 23:55 85 11/12/21 23:32 36.6 C 74 18 116/68 98 Room Air Laboratory Results Hgb: 11.4 g/dL @ 11:43 AM 11/13 Hct: 32.0% @ 11:43 AM 11/13
[2021-11-13] MEDS ORDERED: PANTOprazole 40 MG TAB PO SCH (10:15)
--- NOTE | 2021-11-13 11:03 | Discharge Summary ---
Date of Service November 13, 2021 Admission HPI Per Admitting Provider 21 year old male with no significant PMH who presented to the [facility] with a chief complaint of abdominal pain and vomiting with hematemesis. In the ED the patient was found to have a leukocytosis with left shift of 14.39, Hgb of 14.4, BUN of 40, CT of the abdomen and pelvis with IV contrast revealed " inflammatory change involving the proximal duodenum as detailed above. Differential considerations include duodenitis or possibly ulcer disease". The patient was started on Protonix, given 1L NSS and famotidine. Gastroenterology was contacted and recommended admission, they will perform an EGD tomorrow. At the time of the exam the patient was resting comfortably in bed in no acute distress. He states that he was in his normal state of health until he woke up this am and felt dehydrated and tired. He tried to drink some water and then went to class. While in class he states that he was diaphoretic, nauseous, and lightheaded. He walked back to the bus stop and was standing and waiting for the bus in the sun. He states that he felt more lightheaded/dizzy and felt as though he was going to pass out so he went and sat in the shade. He then felt nauseous again and had 4 episodes of vomiting. He showed me a picture of the vomit and it consisted of blood and digested blood. He denies frequent NSAID use, history of GI ulcers, and significant PMH. He states that he has been constipated the past few days and had taken a stool softener. He is having some mild lower abdominal pain which he describes as dull and non-radiating. Since arriving to the hospital he has not vomited but has had multiple small, black bowel movements. Admission Exam Per Admitting Provider General:In no acute distress, stated age, well-nourished, good hygiene HEENT:Normocephalic, atraumatic, no scleral icterus, pupils around round, symmetrical, and reactive to light, moist mucus membranes, trachea midline, no thyromegaly Chest/Pulm:No respiratory distress, symmetrical chest expansion, clear breath sounds throughout Cardiac: Tachycardic rate, regular rhythm, no murmurs noted Abdomen:Negative for ascites and bruising, normoactive bowel sounds, soft, mildly tender to palpation in the lower abdomen Musculoskeletal:Symmetrical and without signs of acute trauma, upper and lower extremities with full ROM, no atrophy, spasticity, or flaccidity Neuro:Alert and oriented to person, place, month, year, and president, no focal defects, CN II-XII tested and intact, finger to nose test negative, no tremors noted Psych:No acute distress, calm and cooperative during the exam Principal Diagnosis upper GI bleed due to vicky luna tears and duodenal ulcer Discharge Exam Constitutional NAD. Vitals WNL. Respiratory CTA bilaterally. No wheezing, crackles, or rales. Non labored breathing. Cardiovascular RRR. No murmur noted. No LE edema. Gastrointestinal (Abdomen) Nontender, +BS. No masses noted. Discharge Data Allergies Allergy/AdvReac Type Severity Reaction Status Date / Time azithromycin [From Zithromax] AdvReac Verified 11/10/21 10:01 Consultations 11/09/21 19:17 ED Decision to Admit Stat 11/09/21 19:49 Consult Gastroenterology Routine Procedures Performed Operation Date: 11/10/21 16:00 Actual Procedures p EGD Hemostasis - Karla Benitez, Impression: - Z-line regular, 36 cm from the incisors. - A large bleeding Vicky-Luna tear with stigmata of recent bleeding was found at the GE junction. For hemostasis, one hemostatic clip was successfully placed. There was no bleeding at the end of the procedure. - A large non-bleeding Vicky-Luna tear with stigmata of recent bleeding was found at the GE junction across from the other noted actively bleeding vicky-luna tear. For hemostasis, one hemostatic clip was successfully placed. There was no bleeding at the end of the procedure. - Medium-sized hiatal hernia. - Normal stomach. - One oozing cratered duodenal ulcer with oozing hemorrhage (Rickey Class Ib) was found in the duodenal bulb. The lesion was 10 mm in largest dimension that could be seen but may be larger as unable to pass the sweep into the second portion of the duodenum given significant edema. Area was unsuccessfully injected with 2 mL of a 1:10,000 solution of epinephrine for hemostasis. Coagulation for hemostasis using heater probe was successful. - Erythematous duodenopathy. - No specimens collected. Recommendation: - [facility]. - Remain NPO. - PPI drip - Anti-emetics for nausea to prevent any wretching - Would recommend transferring patient to a teritary care center. If he re-bleeds over the weekend he will need interventional radiology for further management and he is high risk for re-bleeding. - Avoid all NSAIDS and alcohol Ordered Studies 11/09/21 16:34 CT abd pelvis IV con only Stat Abdomen/Pelvis CT 11/09/21 16:34 CT SCAN OF THE ABDOMEN AND PELVIS WITH IV CONTRAST CLINICAL HISTORY: Lower abdominal pain. Vomiting. COMPARISON STUDY: No priors. TECHNIQUE: Following the IV administration of 95 cc of Optiray 300, CT scan of the abdomen and pelvis is performed from the lung bases to the proximal femora. Images are reviewed in the axial, sagittal, and coronal planes. IV contrast was administered without complication. A dose lowering technique was utilized adhering to the principles of ALARA. The examination is modestly degraded by motion artifact. CT DOSE: 418.47 mGy.cm FINDINGS: Lung bases: The heart is normal in size and without pericardial effusion. The lung bases are clear. Liver: The contrast-enhanced liver is normal in size, contour, and attenuation. There is no intrahepatic biliary ductal dilatation. The hepatic veins and portal veins are patent. Gallbladder: Unremarkable. Spleen: Normal in size and attenuation. Pancreas: Unremarkable. Adrenal glands: Unremarkable. Kidneys: The contrast enhanced kidneys are normal in size and without hydronephrosis. The kidneys enhance symmetrically. Abdominal vasculature: The abdominal aorta is normal in course and caliber. Bowel: There is no bowel obstruction. There is mild nonspecific wall thickening and mucosal hyperemia involving the proximal duodenum with mild surrounding inflammation. This is best seen on axial image #123. Liquid stool is noted in the colon. There is no colonic wall thickening or surrounding inflammation. The appendix is well-visualized and normal. Peritoneum: There is no intraperitoneal free air or abdominal ascites. There is a small fat-containing umbilical hernia. Lymphadenopathy: Prominent upper abdominal lymph nodes are likely reactive. Pelvic viscera: The bladder is decompressed and not well evaluated. The prostate and seminal vesicles are normal as imaged. Skeletal structures: No lytic or blastic lesions are seen. IMPRESSION: 1. There is inflammatory change involving the proximal duodenum as detailed above. Differential considerations include duodenitis or possibly ulcer disease. Clinical correlation will be essential. This can be further assessed with endoscopy if clinically warranted. 2. No intraperitoneal free air is identified. 3. Liquid stool seen throughout the colon. Correlate clinically for evidence of a diarrheal illness. 4. No bowel obstruction. 5. Additional findings as above. ACT 112: Negative or not required by law. Electronically signed by: Ho Kaye M.D. 11/09/2021 6:27 PM Hospital Course (1) Upper GI bleed: Pt is a 21 yo male with no significant PMH presenting with coffee ground emesis 4x with dark, tarry stools that began the day before presentation (11/09) Acute blood loss anemia sec to upper GI bleed d/t Duodenal ulcer and 2 vicky luna tears - In ER afebrile, hemodynamically stable, and stable on RA, but he had been tachycardic - Started on Protonix in the ED and kept NPO with LR before EGD - Type and screened in case of transfusion - EGD revealed 2 large, bleeding vicky-luna tears that were both clipped in addition to an edematous 10 mm duodenal ulcer - Hb has been stable, no rebleeding events. Last Hb 11.4 - Tolerated progression of diet from NPO to fluids to regular - received 3 days of IV protonix in hospital, transitioned to oral PPI 40 mg BID before d/c - continue PO PPI for 2 months then repeat EGD - gastrin pending during d/c - Obtain H. pylori sample outpatient - possible ulcer etiology from increased stress (uses NSAIDs 2-3x per month, drinks ~6 beers on weekends, unlikely to be cause) Anxiety - pt is on fluoxetine at home 30 mg qHS - encouraged pt to take medication each day to ensure that it will reach its peak effects - also encouraged pt to take time to de-stress each day (2) Peptic ulcer disease: (3) Vicky-Luna tear: (4) Anxiety: Plan Diet: progressed from NPO to liquids to regular upon d/c Dispo: home DVT ppx: unnecessary Total Time Total Time Spent Total Time Spent (In Minutes): As per attending attestation Discharge Plan Discharge Items Patient Disposition: Home - Self-Care Reason For Visit: HEMATEMESIS Discharge Diagnosis: upper GI bleed d/t vicky luna tears and duodenal ulcer Activity: Resume your previous activity Non-emergency contact: Primary Care Provider Call non-emergency contact if: you have any medication questions and your symptoms worsen Follow-up/Referrals: Monica Dumont MD [Physician] - [facility] [Primary Care Provider] - Diet: Regular Addtl Attending Provider Instructions: You were admitted to the hospital for an upper GI bleed from an ulcer and esophageal tears. You received an EGD (scope down your throat) which is where the GI doctor saw the ulcer and tears. You were treated with IV protonix medications for 3 days. You will be discharged with oral protonix medication. It is also recommended that you avoid all NSAID pain killers like ibuprofen and alcohol. A discharge summary will be sent to your primary care physician to ensure continuity of care. Please bring this discharge summary with you to your next office appointment so that your provider can review it at that time. Medications: Your medication list has been reviewed and reconciled upon discharge to ensure accuracy and continuity of care. An updated list of all your medications is included with your hospital discharge paperwork. Please review this list closely and make note of any changes to your medications. - You were prescribed the pantoprazole (protonix) 40 mg which you should take twice a day for the next 2 months. Follow up appointments: - Make a follow up appointment with your PCP within the next week. It is very important that you follow up with them shortly after discharge from the hospital. - Make sure you follow up with the GI doctor as well. They wish to repeat the EGD (scope down your throat) in about 2 months. CONTACT YOUR PRIMARY CARE PROVIDER if you experience any of the following: - Burning sensation in your throat, especially after meals (reflux) - Pain with eating - Difficulty following your treatment plan - Difficulty taking any of your medications CALL 911 OR GO TO THE EMERGENCY DEPARTMENT if you experience any of the following: - Repeat episodes of vomiting blood - Dark or bright red stools - Sudden, severe abdominal pain or nausea/vomiting - Severe chest pain or chest pain that radiates to your jaw or arm - Sudden, severe shortness of breath or difficulty breathing Pending Studies at Discharge: Yes (H.pylori, gastrin) Stand-Alone Forms: My Dexcom, Smoking Cessation Medications and DC Order Prescriptions: New pantoprazole 40 mg Tablet,Delayed Release (Dr/Ec) 40 mg PO BID Qty: 120 1RF Continued alprazolam 0.5 mg Tablet 0.5 mg PO BID PRN (Reason: Anxiety) fluoxetine 10 mg capsule 10 mg PO HS fluoxetine 20 mg capsule 20 mg PO HS Discharge Orders: Discharge Order (Routine); Ordered 11/13/21 Ordered By: Tania Scott Admission Data Admit Date/Time: 11/09/21 22:42 Attending Provider: Jorge Luis Haney Admit Provider: Sonia Guerrero Primary Care Provider: [facility] Other Providers: Sonia Guerrero ; Berna Sanchez Other Interventions: Discharge Summary Assessment (RN) Last Done: 11/10/21 10:56 Resident Activity Tracking Resident Involvement: Resident Care Provided Care Provided: Adult [facility]
[2021-11-13 11:56] LABS: Hemoglobin 11.4 g/dl (14.0-18.0)
--- NOTE | 2021-11-13 18:46 | Billing Data ---
Date of Service November 13, 2021 Coding Level of Care Code D/C DAY MANAGEMENT <30 MINS
== END 2021-11-13 16:09 | disposition home or self-care (01) | DRG 369 ==
LOC: ED 15:53 → 4W 22:26 → SUATTDRO 22:42